=== PATIENT | female | born 1930 | race Hispanic/Latino ===

== ENCOUNTER 2017-06-30 21:14 | Observation (INO) | payer MEDICARE ==
[~2017-06-30] VITALS: Ht 154.9 cm; Wt 80.7 kg
[~2017-06-30 21:14] MED LIST: ACET-66 PO; ALBU2.5V2 IH; CLOP75TA14 PO; ECON15CR2 TP; ESCI10TA54 PO; EZET10 PO; FURO40TA5 PO; LEVO125T11 PO; METO25TA6 PO; POTA-79 PO; PREG50 PO; ROPI1TAB11 PO; TYL3B PO
[2017-06-30 22:01] LABS: BASOPHILS % (AUTO) 0.3 % (0.0-5.0); EOSINOPHILS % (AUTO) 0.5 % (0.0-8.0); HEMATOCRIT 31.6 % (36-48); LYMPHOCYTES % (AUTO) 16.1 % (21.0-51.0); MEAN CORPUSCULAR HEMOGLOBIN 30.8 pg (27.0-33.0); MEAN CORPUSCULAR HGB CONC 34.5 g/dL (32.0-36.0); MEAN CORPUSCULAR VOLUME 89.5 fL (79-99); MONOCYTES % (AUTO) 11.7 % (3.0-13.0); NEUTROPHILS % (AUTO) 71.4 % (40.0-77.0); PLATELET COUNT (AUTO) 355 K/uL (130-400); RED BLOOD CELL COUNT(AUTO) 3.53 MIL/uL (4.00-5.50); WHITE BLOOD COUNT (AUTO) 11.6 K/uL (4.8-10.8)
[2017-06-30 22:10] LABS: BILIRUBIN,URINE Negative (NEGATIVE); COLOR,URINE Yellow (YELLOW); GLUCOSE, URINE (UA) Negative (NEGATIVE); KETONES,URINE Negative (NEGATIVE); LEUKOCYTE ESTERASE ,URINE Moderate (NEGATIVE); NITRATE,URINE Negative (NEGATIVE); OCCULT BLOOD,URINE Negative (NEGATIVE); PROTEIN,URINE Negative (NEGATIVE)
[2017-06-30 22:11] LABS: CREATININE 1.2 mg/dL (0.5-1.5)
[2017-06-30 22:17] LABS: ALBUMIN 2.7 g/dL (3.5-5.0); BILIRUBIN,TOTAL 0.3 mg/dL (0.2-1.0); TOTAL PROTEIN, SERUM 7.3 g/dL (6.0-8.3)
[2017-06-30] MEDS ORDERED: IPRATROPIUM/ALBUTEROL SULFATE 3 ML SOLUTION IH ONE (22:18)
[2017-06-30 22:25] LABS: APPEARANCE,URINE CLEAR (CLEAR); RBC,URINE None Seen /HPF (0-1)
[2017-06-30 22:26] LABS: BACTERIA,URINE Rare /HPF (None Seen)
[2017-06-30] MEDS ORDERED: POTASSIUM BICARB/CIT AC 25 MEQ TABLET.EFF ONE (22:44)
[2017-07-01] MEDS ORDERED: CEFTRIAXONE SODIUM 1 GM ONE (01:18)
[2017-07-01] MEDS ORDERED: SODIUM CHLORIDE 0.9% 1000ML 1,000 ML IV ONE (01:50)
[2017-07-01] MEDS ORDERED: POTASSIUM CHLORIDE 10% ELIXIR 20 MEQ/15 ML UDCUP PO PRN (02:30)
[2017-07-01] MEDS ORDERED: POTASSIUM CHLORIDE 20MEQ/100ML 100 ML IV PRN (02:30)
[2017-07-01] MEDS ORDERED: LIDOCAINE HCL-MPF 1% 2ML VIAL IJ PRN (02:30)
[2017-07-01] MEDS ORDERED: POTASSIUM CHLORIDE 20 MEQ ERTAB PO PRN (02:30)
[2017-07-01] MEDS ORDERED: ONDANSETRON HCL 4 MG/2 ML VIAL IVP PRN (02:30)
[2017-07-01] MEDS ORDERED: MORPHINE SULFATE 2 MG/ML 1ML SYG IVP PRN (02:30)
[2017-07-01] MEDS: CEFTRIAXONE SODIUM 1 GM IVP SCH (03:00)
[2017-07-01 05:16] LABS: POTASSIUM 3.3 mmol/L (3.5-5.1)
[2017-07-01 05:32] LABS: BASOPHILS % (AUTO) 0.4 % (0.0-5.0); EOSINOPHILS % (AUTO) 1.2 % (0.0-8.0); HEMATOCRIT 30.7 % (36-48); LYMPHOCYTES % (AUTO) 18.6 % (21.0-51.0); MEAN CORPUSCULAR HEMOGLOBIN 30.7 pg (27.0-33.0); MEAN CORPUSCULAR HGB CONC 34.2 g/dL (32.0-36.0); MONOCYTES % (AUTO) 11.8 % (3.0-13.0); PLATELET COUNT (AUTO) 313 K/uL (130-400); RED BLOOD CELL COUNT(AUTO) 3.41 MIL/uL (4.00-5.50); WHITE BLOOD COUNT (AUTO) 9.8 K/uL (4.8-10.8)
[2017-07-01] MEDS: FAMOTIDINE/PF 20 MG/2 ML VIAL IV SCH (09:00)
[2017-07-01] MEDS ORDERED: LOPE2TAB24 PO (10:00)
[2017-07-01] MEDS ORDERED: FAMO20TA8 PO (10:00)
[2017-07-01] MEDS ORDERED: NEOM3.5O31 OP (10:00)
[2017-07-01] MEDS ORDERED: FAMOTIDINE/PF 20 MG/2 ML VIAL IV ONE (10:10)
[2017-07-01 15:40] VITALS: BP 125/59
[2017-07-01] MEDS: SODIUM CHLORIDE 0.9% 1000ML 1,000 ML IV SCH ×2 (15:48→15:50)
[2017-07-01] MEDS ORDERED: ONDANSETRON HCL MDV 20ML 2 MG/ML VIAL IVP PRN (16:22)
[2017-07-01 20:00] VITALS: BP 131/55
[2017-07-02] VITALS: BP 161/75
[2017-07-02] MEDS: CEFTRIAXONE SODIUM 1 GM IVP SCH (03:24)
[2017-07-02] MEDS: SODIUM CHLORIDE 0.9% 1000ML 1,000 ML IV SCH (03:30)
[2017-07-02 04:00] VITALS: BP 122/54
[2017-07-02 05:39] LABS: HEMATOCRIT 29.3 % (36-48); MEAN CORPUSCULAR HEMOGLOBIN 32.2 pg (27.0-33.0); MEAN CORPUSCULAR HGB CONC 35.7 g/dL (32.0-36.0); MEAN CORPUSCULAR VOLUME 90.1 fL (79-99); PLATELET COUNT (AUTO) 321 K/uL (130-400); RED BLOOD CELL COUNT(AUTO) 3.25 MIL/uL (4.00-5.50); RED CELL DISTRIBUTION WIDTH 14.8 % (11.0-15.5); WHITE BLOOD COUNT (AUTO) 10.5 K/uL (4.8-10.8)
[2017-07-02 05:45] LABS: CREATININE 0.8 mg/dL (0.5-1.5); POTASSIUM 3.8 mmol/L (3.5-5.1)
[2017-07-02 08:00] VITALS: BP 116/48
[2017-07-02] MEDS: FAMOTIDINE/PF 20 MG/2 ML VIAL IV SCH (09:25)
== END 2017-07-02 12:25 | disposition home or self-care (01) ==
LOC: EDH 21:14 → EDHIP 07-01 00:39 → 4BH 07-01 15:50
PROVIDERS: ADMIT Family Medicine; ATTEND Family Medicine
DX: K63.9 Disease of intestine, unspecified (principal); D64.9 Anemia, unspecified; R62.7 Adult failure to thrive; R53.81 Other malaise; N39.0 Urinary tract infection, site not specified; J44.9 Chronic obstructive pulmonary disease, unspecified; I10 Essential (primary) hypertension; E03.9 Hypothyroidism, unspecified; I25.10 Atherosclerotic heart disease of native coronary artery without angina pectoris; G89.29 Other chronic pain; M54.9 Dorsalgia, unspecified; F17.210 Nicotine dependence, cigarettes, uncomplicated; Z85.048 Personal history of other malignant neoplasm of rectum, rectosigmoid junction, and anus; Z95.5 Presence of coronary angioplasty implant and graft; Z90.49 Acquired absence of other specified parts of digestive tract; Z88.2 Allergy status to sulfonamides
CPT/HCPCS: 36415 ×3; 71045; 71250; 74176; 80048 ×2; 80053; 81001; 82378; 85025 ×2; 85027; 87040 ×2; 87088; 92610; 93005; 94640; 96361 ×2; 96374; 96375; 99285; A4218 ×2; G0378 ×36; J0696 ×2; J3490 ×2; J7030 ×2